=== PATIENT | female | born 1950 | race Native Hawaiian/Other Pacific Islander ===

== ENCOUNTER 2017-11-20 14:08 | Emergency (ER) | payer BC, MEDICARE ==
[2017-11-20 14:08] VITALS: BMI 22.8
[2017-11-20 14:15] VITALS: O2SAT 99
--- NOTE | 2017-11-20 15:16 | C.PDOC ---
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 Patient denies head injury, LOC, syncope, abdominal pain, back pain, weakness or numbness. 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) Past Medical History Reviewed: Historical Data, Nursing Documentation, Vital Signs Vital Signs: Last Vital Signs Temp 97.8 F 11/20/17 16:15 Pulse 65 11/20/17 16:15 Resp 18 11/20/17 16:15 BP 108/69 11/20/17 16:15 Pulse Ox 99 11/20/17 16:15 - Medical History PMH: Arthritis, HTN, Hypercholesterolemia, Hyperlipidemia - [facility] Procedures APPLICATION OF SPLINT (05/25/14) Family History: States: No Known Family Hx - Social History Hx Tobacco Use: No Hx Alcohol Use: No Hx Substance Use: No - Immunization History Hx Tetanus Toxoid Vaccination: No Hx Influenza Vaccination: Yes Hx Pneumococcal Vaccination: Yes Review Of Systems Except As Marked, All Systems Reviewed And Found Negative. Gastrointestinal: Negative for: Abdominal Pain Genitourinary: Negative for: Hematuria Musculoskeletal: Positive for: Other ((+) Right upper hip pain and upper right leg pain) Neurological: Negative for: Weakness, Numbness Physical Exam - Physical Exam Appears: Non-toxic, No Acute Distress Skin: Warm, Dry, No Rash, No Ecchymosis Head: Atraumatic, Normacephalic Eye(s): bilateral: PERRL Ear(s): Bilateral: Normal Nose: No Deformity, No Tenderness Oral Mucosa: Moist Tongue: Normal Appearing Lips: Normal Appearing Throat: No Erythema, No Drooling Neck: Trachea Midline, No Midline Cervical Tenderness, No Paracervical Tenderness, No Step Off Deformity, Supple Cardiovascular: Rhythm Regular, No Murmur Respiratory: No Decreased Breath Sounds, No Accessory Muscle Use, No Rales, No Rhonchi, No Stridor, No Wheezing Gastrointestinal/Abdominal: Soft, No Tenderness, No Guarding, No Rebound Back: No Vertebral Tenderness, No Paraspinal Tenderness Extremity: Normal ROM (mild discomfort to Right hip extension du eto pain. Otherwise, FAROm of B/L UEs and LEs, no neurovascular deficits.), Tenderness ( overlying right hip and naterior aspect Right knee; No palpable deformity, no ecchymoses.), No Deformity, No Swelling Neurological/Psych: Oriented x3, Normal Speech, Normal Motor, Normal Sensation, Normal Reflexes ED Course And Treatment O2 Sat by Pulse Oximetry: 99 (RA) Pulse Ox Interpretation: Normal () - Other Rad Right hip/Pelvis X-Ray: Interpreted by Me, Viewed By Me Interpretation: (-) acute fx or dislocation Right knee X-Ray: Interpreted by Me, Viewed By Me Interpretation: (-) acut efx or dislocation Progress Note: On re-evaluation, pt is afebrile, hemodynamicaly stable. Non- toxic. Pt was able to Ambulate in Ed after tx with stable gait. Head: AT/NC,. neck: Supple, (-) midline tenderness. Abd: benign. B/L LEs: FAROM, no neurovasculatr deficits. neurologicaly intact. Imaging review and appears without acute findings. Pt has clinical findings c /w Right hip strain, thigh strain s/p mechanical fall. Pt and family advised. re.f to F/U with PMD, Ortho in 2-3 days for re-eavl. return if any new changes. Medical Decision Making Medical Decision Making: PLAN: * X-Ray - Right Hip w/ Pelvis, Right Knee * Motrin PO * Valium PO Disposition Counseled Patient/Family Regarding: Studies Performed, Diagnosis, Need For Followup, Rx Given - Disposition Referrals: Jelly Rubio MD [Medical Doctor] - Disposition: HOME/ ROUTINE Disposition Time: 15:13 Condition: STABLE Additional Instructions: Light duty to Right leg avoid prolong walking ice to contusion area take pain medication as need for pain Follow up with PMD, Ortho in 2-3 days for re-eval. return o ED if any worsening or new changes. Prescriptions: Methocarbamol [Robaxin] 500 mg PO TID #14 tab traMADol [Ultram] 50 mg PO TID #7 tab Instructions: Hip Sprain (ED) Forms: [employer]ox (Kittitian) - Clinical Impression Clinical Impression: Hip sprain - PA / SUPER[employer] / Resident 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 - Scribe Statement The provider has reviewed the documentation as recorded by the Scribe Deepa Prado All medical record entries made by the Scribe were at my direction and personally dictated by me. I have reviewed the chart and agree that the record accurately reflects my personal performance of the history, physical exam, medical decision making, and the department course for this patient. I have also personally directed, reviewed, and agree with the discharge instructions and disposition.
--- NOTE | 2017-11-20 15:24 | RAD ---
PROCEDURE: Right Knee Radiographs. HISTORY: ijnury COMPARISON: None. FINDINGS: BONES: No fracture. JOINTS: Minimal patellofemoral and medial femoral tibial osteoarthritis. JOINT EFFUSION: None. OTHER FINDINGS: 1 cm nodular medial subcutaneous soft tissue nodules and/or prominent nodular varicosities here correlate with clinical exam. IMPRESSION: No fracture. Minimal osteoarthrosis Medial subcutaneous soft tissue like nodular densities as above
--- NOTE | 2017-11-20 15:28 | RAD ---
PROCEDURE: HISTORY: injury COMPARISON: None TECHNIQUE: AP view of the pelvis and applicable frog leg views obtained. FINDINGS: No fracture or dislocation Bilateral superolateral hip joint space narrowing mild superolateral acetabular spurring. Additional inferomedial acetabular spurring also suggested. Right L5-S1 asymmetric sclerotic hypertrophic arthrosis IMPRESSION: No fracture or dislocation. Arthrosis as above
[2017-11-20 16:29] VITALS: BP 108/69; PULSE 65; RESP 18; TEMP 97.8
== END 2017-11-20 16:20 | disposition home or self-care (01) ==
LOC: C.ER 14:08
DX: S73.101A Unspecified sprain of right hip, initial encounter (principal); S76.911A Strain of unspecified muscles, fascia and tendons at thigh level, right thigh, initial encounter; W18.30XA Fall on same level, unspecified, initial encounter

== ENCOUNTER 2018-05-01 11:13 | Emergency (ER) | payer MEDICARE ==
[2018-05-01 11:36] VITALS: BMI 21.6
[2018-05-01 11:39] VITALS: O2SAT 97
[2018-05-01] MEDS ORDERED: Sodium Chloride 0.9% 1,000 ML IV ONE (11:43)
--- NOTE | 2018-05-01 11:44 | C.PDOC ---
History Of Present Illness 67 year old female presents to the ER complaining of nausea, vomiting, and diarrhea that started last night. She reports having multiple episodes of vomiting and non-bloody, non-bilious diarrhea. Otherwise she denies any fever, chills, dysuria, frequency, or incontinence. Time Seen by Provider: 05/01/18 11:36 Chief Complaint (Nursing): Abdominal Pain History Per: Patient History/Exam Limitations: no limitations Onset/Duration Of Symptoms: Days Current Symptoms Are (Timing): Still Present Severity: Mild Location Of Pain/Discomfort: Diffuse Quality Of Discomfort: Cramping Associated Symptoms: Nausea, Vomiting Recent travel outside of the [place]: No Past Medical History Reviewed: Historical Data, Nursing Documentation, Vital Signs Vital Signs: Last Vital Signs Temp 98.6 F 05/01/18 13:11 Pulse 66 05/01/18 13:11 Resp 18 05/01/18 13:11 BP 113/70 05/01/18 13:11 Pulse Ox 97 05/01/18 14:43 - Medical History PMH: Arthritis, HTN, Hypercholesterolemia, Hyperlipidemia Denies: Chronic Kidney Disease Surgical History: No Surg Hx - [facility] Procedures APPLICATION OF SPLINT (05/25/14) Family History: States: No Known Family Hx - Social History Hx Tobacco Use: No Hx Alcohol Use: No Hx Substance Use: No - Immunization History Hx Tetanus Toxoid Vaccination: No Hx Influenza Vaccination: Yes Hx Pneumococcal Vaccination: Yes Review Of Systems Constitutional: Negative for: Fever, Chills Cardiovascular: Negative for: Chest Pain Gastrointestinal: Positive for: Nausea, Vomiting, Abdominal Pain, Diarrhea. Negative for: Constipation, Hematochezia, Hematemesis Genitourinary: Negative for: Dysuria, Frequency, Incontinence Physical Exam - Physical Exam Appears: Non-toxic, No Acute Distress Skin: Normal Color, Warm, Dry Head: Atraumatic, Normacephalic Eye(s): bilateral: Normal Inspection, PERRL, EOMI Neck: Normal ROM, Supple Chest: Symmetrical Cardiovascular: Rhythm Regular, No Murmur Respiratory: Normal Breath Sounds, No Accessory Muscle Use, No Rhonchi, No Wheezing Gastrointestinal/Abdominal: Soft, No Tenderness, No Distention, No Guarding Back: Normal Inspection Extremity: Normal ROM Extremity: Bilateral: Atraumatic, Normal Color And Temperature, Normal ROM Neurological/Psych: Oriented x3, Normal Speech Gait: Steady ED Course And Treatment - Laboratory Results Result Diagrams: 05/01/18 12:10 05/01/18 12:10 Lab Interpretation: No Acute Changes O2 Sat by Pulse Oximetry: 97 (RA) Pulse Ox Interpretation: Normal Progress Note: Patient treated with IVF NSS, zofran and toradol. On re- evaluation feeling better, tolerating PO. Abdomen soft, non-tender Reassessment Condition: Improved Medical Decision Making Medical Decision Making: Time: 11:43 Initial Plan: * Blood work * Urinalysis * IV fluids * Pepcid 20 mg IVP * Zofran 4 mg IVP Disposition Counseled Patient/Family Regarding: Studies Performed, Diagnosis, Need For Followup - Disposition Referrals: Jelly Rubio MD [Medical Doctor] - Disposition: HOSPITALIZED Disposition Time: 15:00 Condition: STABLE Additional Instructions: Follow up with your PMD Return to ED if any increase symptoms Prescriptions: Ondansetron ODT [Zofran ODT] 1 odt PO BID PRN #6 odt PRN Reason: Nausea/Vomiting Instructions: Viral Gastroenteritis Forms: [employer] (Polish) - POA Present On Arrival: None - Clinical Impression Clinical Impression: Gastroenteritis - 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 - Scribe Statement The provider has reviewed the documentation as recorded by the Scribe (Catherine Scruggs) All medical record entries made by the Scribe were at my direction and personally dictated by me. I have reviewed the chart and agree that the record accurately reflects my personal performance of the history, physical exam, medical decision making, and the department course for this patient. I have also personally directed, reviewed, and agree with the discharge instructions and disposition.
[2018-05-01] MEDS ORDERED: Sodium Chloride 0.9% 1,000 ML ONE (11:57)
[2018-05-01 12:36] LABS: EOS % 0.1 % (0.0-4.0); HEMOGLOBIN 15.4 g/dL (11.0-16.0); LYMPH # 0.6 K/uL (1.0-4.3); LYMPH % 7.1 % (20.0-40.0); MEAN CELL VOLUME 88.4 fL (81.0-99.0); MEAN CORPUSCULAR HGB CONC 33.9 g/dL (33.0-37.0); MEAN PLATELET VOLUME 7.7 fL (7.2-11.7); MONO # 0.2 K/uL (0.0-0.8); NEUT # 8.2 K/uL (1.8-7.0); NEUT % 90.8 % (50.0-75.0); PLATELET COUNT 230 K/uL (130-400); RBC 5.14 Mil/uL (3.80-5.20); RED CELL DISTRIBUTION WIDTH 13.4 % (11.5-14.5)
[2018-05-01 12:38] LABS: URINE BILIRUBIN NEGATIVE (NEGATIVE); URINE BLOOD NEGATIVE (NEGATIVE); URINE CLARITY Clear (Clear); URINE COLOR Yellow (YELLOW); URINE GLUCOSE (UA) 1+ mg/dL (Normal); URINE LEUKOCYTE ESTERASE NEG Leu/uL (Negative); URINE PROTEIN NEGATIVE (NEGATIVE); URINE UROBILINOGEN NORMAL mg/dL (0.2-1.0)
[2018-05-01 12:43] LABS: ALB/GLOB RATIO 1.3 (1.0-2.1); ALBUMIN 4.2 g/dL (3.5-5.0); ALT/SGPT 191 U/L (9-52); AST/SGOT 172 U/L (14-36); BLOOD UREA NITROGEN 24 mg/dL (7-17); CALCIUM 8.8 mg/dl (8.6-10.4); GFR AFRICAN-AMERICAN > 60; GFR NON-AFRICAN AMERICAN > 60; LIPASE 94 U/L (23-300)
[2018-05-01 13:12] VITALS: BP 113/70; PULSE 66; RESP 18; TEMP 98.6
[2018-05-01 13:37] LABS: BANDS 1 % (0-2); EOSINOPHIL 1 % (0-4); MONOCYTE 1 % (0-10); TOTAL CELLS COUNTED 100
[2018-05-01 13:38] LABS: LYMPHOCYTE 9 % (20-40); NEUTROPHIL 88 % (50-75); PLATELET ESTIMATE NORMAL (NORMAL)
== END 2018-05-01 15:02 | disposition short-term general hospital (02) ==
LOC: C.ER 11:13
DX: K52.9 Noninfective gastroenteritis and colitis, unspecified (principal)
CPT/HCPCS: 80053; 81001; 83690; 85025; 96361; 96374; 96375; 99284; J1885; J2405; J7030

== ENCOUNTER 2019-01-21 08:58 | Outpatient (CLI) | payer MEDICARE | END 2019-01-21 08:59 | disposition home or self-care (01) | LOC: C.USIC 08:58 ==